=== PATIENT | female | born 1965 | race Caucasian/White ===

== ENCOUNTER → 2017-09-26 | Day surgery (SDC) | payer BC ==
[~2017-09-26] MED LIST: Lactated Ringers 1,000 ML IV SCH; Propofol 200 MG/20 ML SDV IV ONE
--- NOTE | 2017-09-26 11:12 | OR ---
DATE OF OPERATION: 09/26/2017 PREOPERATIVE DIAGNOSIS: COLON SCREENING. POSTOPERATIVE DIAGNOSIS: COLON SCREENING. SURGEON: Zheng Galeas MD PROCEDURE: COLONOSCOPY. ANESTHESIA: IV sedation by [employer]IL [employer] FISHING TOOL TECHNICIAN. DESCRIPTION OF PROCEDURE: After the patient was placed in left lateral position, colonoscope was gradually maneuvered through the rectum, then into sigmoid colon, gradually up the descending colon across the splenic flexure into transverse colon, across the hepatic flexure and descending colon, down to cecum. Multiple photographs were taken. Colonoscope was gradually withdrawn. There was no evidence of any tumor, mass, any polypoid lesion, any inflammatory process, or any diverticulosis. The patient tolerated the procedure well and left the operating room in satisfactory condition. ELIZABETH/MANDY /[id number]
== END ==
LOC: CC.SDS 08:27
PROVIDERS: ATTEND Surgery
DX: Z12.11 Encounter for screening for malignant neoplasm of colon (principal); F41.9 Anxiety disorder, unspecified; I10 Essential (primary) hypertension; E78.00 Pure hypercholesterolemia, unspecified; E87.6 Hypokalemia; Z79.899 Other long term (current) drug therapy; Z98.890 Other specified postprocedural states; Z90.710 Acquired absence of both cervix and uterus; Z87.891 Personal history of nicotine dependence
CPT/HCPCS: 45378; J2704; J7120

== ENCOUNTER 2018-08-04 17:59 | Emergency (ER) | payer BC ==
[2018-08-04] MEDS ORDERED: Ondansetron 4 MG Tab.DIS PO ONE (18:00)
--- NOTE | 2018-08-04 18:34 | EDM.PDOC ---
ED HPI GENERAL MEDICAL PROBLEM - General Chief Complaint: Lower Extremity Injury/Pain Stated Complaint: fall from scaufolding Time Seen by Provider: 08/04/18 18:10 Source of Information: Reports: Patient, EMS, Family History Limitations: Reports: Altered Mental Status - History of Present Illness INITIAL COMMENTS - FREE TEXT/NARRATIVE: Pt was found on the ground after falling 6 feet off a scaffolding where she had been painting. It was not witnessed and she doesn't remember falling. She remembers being on the scaffold and that is it. She was unconscious when first found on the ground that was grass but very hard and packed down area. Airway is open. pt talking breathing- she denies feeling SOB. Lung sounds are clear throughout. Trachea is midline circulation- No open areas or bleeding noted. deformites. She does have inward rotation and swelling to her left foot. Pulse is present. Pain to posterior left hip with movement but has full ROM at the hip. Posterior pelvis is tender with palpation on the left. No leg deformity noted. C- collar is intact. Onset: Today Onset Time: 17:30 Location: Reports: Head, Pelvis, Lower Extremity, Left. Denies: Chest, Abdomen , Back Worsens with: Reports: Movement Associated Symptoms: Reports: Confusion Left Hip Pain Score (Numeric/FACES): 7 Left Ankle Pain Score (Numeric/FACES): 8 - Related Data Allergies Allergy/AdvReac Type Severity Reaction Status Date / Time No Known Allergies Allergy Verified 08/04/18 17:48 Home Meds: Home Meds Diltiazem HCl [Dilt-XR] 120 mg PO DAILY 09/26/17 [History] Hydrochlorothiazide 25 mg PO DAILY 09/26/17 [History] PARoxetine HCl [Paroxetine HCl] 40 mg PO BEDTIME 09/26/17 [History] Sulfamethoxazole/Trimethoprim [Bactrim Ds Tablet] 1 tab PO BEDTIME 09/26/17 [ History] atorvaSTATin Calcium [Atorvastatin Calcium] 10 mg PO BEDTIME 09/26/17 [History] Cholecalciferol (Vitamin D3) [Vitamin D3] 1,000 unit PO DAILY 08/04/18 [History] Ubidecarenone [Co Q-10] 50 mg PO DAILY 08/04/18 [History] Past Medical History Cardiovascular History: Reports: High Cholesterol, Hypertension Psychiatric History: Reports: Depression Dermatologic History: Reports: Other (See Below) (boils- takes sulfa for it.) - Past Surgical History HEENT Surgical History: Reports: Adenoidectomy, Tonsillectomy, Other (See Below ) (septoplasty) Female Surgical History: Reports: Hysterectomy Musculoskeletal Surgical History: Reports: Shoulder Surgery Social & Family History - Tobacco Use Smoking Status *Q: Current Every Day Smoker (1 1/2 pack a day.) - Living Situation & Occupation Living situation: Reports: , with Family Occupation: Employed Review of Systems - Review of Systems Review Of Systems: See Below Constitutional: Reports: No Symptoms Eyes: Reports: No Symptoms Ears: Denies: Pain, Bloody Discharge Nose: Reports: No Symptoms Mouth/Throat: Reports: No Symptoms Respiratory: Denies: Shortness of Breath Cardiovascular: Reports: No Symptoms GI/Abdominal: Reports: No Symptoms Musculoskeletal: Reports: Foot Pain, Other (posterior pelvis pain.) Skin: Reports: No Symptoms. Denies: Wound Neurological: Reports: Confusion, Headache, Other (initial LOC noted on scene) Psychiatric: Reports: No Symptoms ED EXAM, GENERAL - Physical Exam Exam: See Below Exam Limited By: Altered Mental Status General Appearance: Alert, Moderate Distress Eye Exam: Bilateral Eye: PERRL (3 mm) Ears: Normal External Exam, Normal Canal, Normal TMs Nose: Normal Inspection Throat/Mouth: Normal Inspection, Normal Oropharynx, No Airway Compromise Head: Atraumatic, Normocephalic Neck: Normal Inspection, Supple, Non-Tender, Full Range of Motion Respiratory/Chest: No Respiratory Distress, Lungs Clear, Normal Breath Sounds Cardiovascular: Regular Rate, Rhythm, No Edema GI/Abdominal: Normal Bowel Sounds, Soft, Non-Tender Back Exam: Normal Inspection. No: Paraspinal Tenderness, Vertebral Tenderness Extremities: No Pedal Edema, Normal Capillary Refill, Other (pain to the posterior pelvis with any movement.) Neurological: Alert, Confused Skin Exam: Warm, Dry, Intact. No: Wound/Incision Course - Vital Signs Last Recorded V/S: Last Vital Signs Temp 98.5 F 08/04/18 18:57 Pulse 62 08/04/18 18:57 Resp 18 08/04/18 18:57 BP 141/79 H 08/04/18 18:57 Pulse Ox 99 08/04/18 18:57 - Orders/Labs/Meds Orders: Active Orders 24 hr Category Date Time Status Ankle Min 3V Lt [CR] Stat Exams 08/04/18 18:13 Taken CXR [Chest 1V Frontal] [CR] Stat Exams 08/04/18 18:11 Taken Cervical Spine wo Cont [CT] Stat Exams 08/04/18 18:18 Ordered Head wo Cont [CT] Stat Exams 08/04/18 18:18 Taken Pelvis 1V or 2V [CR] Stat Exams 08/04/18 18:11 Taken Labs: Laboratory Tests 08/04/18 08/04/18 08/04/18 Range/Units 18:16 18:16 18:16 WBC 14.2 H (5.0-10.0) 10^3/uL RBC 4.56 (4.00-5.50) 10^6/uL Hgb 14.3 (12.0-16.0) g/dL Hct 43.3 (37.0-47.0) % MCV 95.0 H (82.0-94.0) fL MCH 31.4 (27.0-32.0) pg MCHC 33.0 (33.0-38.0) g/dL RDW Coeff of Dali 13.6 (11.0-15.0) % Plt Count 276 (150-400) 10^3/uL Neut % (Auto) 71.2 (35-85) % Lymph % (Auto) 21.6 (10-55) % [place] % (Auto) 5.9 (0-16) % Eos % (Auto) 1.1 (0-5) % Baso % (Auto) 0.2 (0-3) % Neut # (Auto) 10.07 H (1.80-7.00) 10^3/uL Lymph # (Auto) 3.06 (1.00-4.80) 10^3/uL [place] # (Auto) 0.84 H (0.00-0.80) 10^3/uL Eos # (Auto) 0.15 (0.00-0.45) 10^3/uL Baso # (Auto) 0.03 10^3/uL PT 10.6 (9.7-12.3) SEC INR 1.02 (0.92-1.18) Sodium 140 (136-145) mEq/L Potassium 4.7 D (3.5-5.0) mEq/L Chloride 102 (98-106) mEq/L Carbon Dioxide 32 (21-32) mmol/L BUN 16 D (7-18) mg/dL Creatinine 1.0 (0.6-1.0) mg/dL Est Cr Clr Drug Dosing 61.81 mL/min Estimated GFR (MDRD) 58 L (>=60) mL/min Glucose 156 H D (75-99) mg/dL Calcium 9.8 (8.4-10.1) mg/dL Total Bilirubin 0.4 (0.0-1.0) mg/dL AST 20 (15-37) U/L ALT 28 (12-78) U/L Alkaline Phosphatase 91 (46-116) U/L Total Protein 7.6 (6.4-8.2) g/dL Albumin 4.3 (3.4-5.0) g/dL Amylase 47 (25-115) U/L HCG, Qual Urine Color (YELLOW) Urine Appearance (CLEAR) Urine pH (4.5-8.0) Ur Specific [place] (1.003-1.020) Urine Protein (NEGATIVE) mg/dL Urine Glucose (UA) (NEGATIVE) mg/dL Urine Ketones (NEGATIVE) mg/dL Urine Occult Blood (NEGATIVE) Urine Nitrite (NEGATIVE) Urine Bilirubin (NEGATIVE) Urine Urobilinogen (0.2-1.0) EU/dL Ur Leukocyte Esterase (NEGATIVE) Urine RBC (0-5) /HPF Urine WBC (0-5) /HPF Ur Squamous Epith Cells (NOT SEEN) /HPF Amorphous Sediment (NOT SEEN) /HPF Urine Bacteria (NOT SEEN) /HPF 08/04/18 08/04/18 Range/Units 18:31 19:28 WBC (5.0-10.0) 10^3/uL RBC (4.00-5.50) 10^6/uL Hgb (12.0-16.0) g/dL Hct (37.0-47.0) % MCV (82.0-94.0) fL MCH (27.0-32.0) pg MCHC (33.0-38.0) g/dL RDW Coeff of Dali (11.0-15.0) % Plt Count (150-400) 10^3/uL Neut % (Auto) (35-85) % Lymph % (Auto) (10-55) % [place] % (Auto) (0-16) % Eos % (Auto) (0-5) % Baso % (Auto) (0-3) % Neut # (Auto) (1.80-7.00) 10^3/uL Lymph # (Auto) (1.00-4.80) 10^3/uL [place] # (Auto) (0.00-0.80) 10^3/uL Eos # (Auto) (0.00-0.45) 10^3/uL Baso # (Auto) 10^3/uL PT (9.7-12.3) SEC INR (0.92-1.18) Sodium (136-145) mEq/L Potassium (3.5-5.0) mEq/L Chloride (98-106) mEq/L Carbon Dioxide (21-32) mmol/L BUN (7-18) mg/dL Creatinine (0.6-1.0) mg/dL Est Cr Clr Drug Dosing mL/min Estimated GFR (MDRD) (>=60) mL/min Glucose (75-99) mg/dL Calcium (8.4-10.1) mg/dL Total Bilirubin (0.0-1.0) mg/dL AST (15-37) U/L ALT (12-78) U/L Alkaline Phosphatase (46-116) U/L Total Protein (6.4-8.2) g/dL Albumin (3.4-5.0) g/dL Amylase (25-115) U/L HCG, Qual Negative Urine Color Yellow (YELLOW) Urine Appearance Clear (CLEAR) Urine pH 7.0 (4.5-8.0) Ur Specific [place] 1.020 (1.003-1.020) Urine Protein Negative (NEGATIVE) mg/dL Urine Glucose (UA) Negative (NEGATIVE) mg/dL Urine Ketones Negative (NEGATIVE) mg/dL Urine Occult Blood Trace-intact H (NEGATIVE) Urine Nitrite Negative (NEGATIVE) Urine Bilirubin Negative (NEGATIVE) Urine Urobilinogen 0.2 (0.2-1.0) EU/dL Ur Leukocyte Esterase Trace H (NEGATIVE) Urine RBC 0-5 (0-5) /HPF Urine WBC 0-5 (0-5) /HPF Ur Squamous Epith Cells Moderate H (NOT SEEN) /HPF Amorphous Sediment Few H (NOT SEEN) /HPF Urine Bacteria Occasional H (NOT SEEN) /HPF Meds: Medications Discontinued Medications Generic Name Dose Route Start Last Admin Trade Name Hi PRN Reason Stop Dose Admin Fentanyl 50 mcg 08/04/18 19:10 08/04/18 19:15 Sublimaze IVPUSH 08/04/18 19:11 50 mcg ONETIME ONE Administration Ondansetron HCl 4 mg 08/04/18 19:10 08/04/18 19:15 Zofran IVPUSH 08/04/18 19:11 4 mg ONETIME ONE Administration - Re-Assessments/Exams Free Text/Narrative Re-Assessment/Exam: 08/04/18 1850 discussed xray of pelvis with Dr. Murillo. He recommends non weight bearing with gradual full weight bearing as tolerated. Using crutches or walker. Discussed with pt and family. Will send home on zofran for nausea that she gets if she takes any pain meds. Has norco at home from previous surgery and will use that. CT head, c-spine negative xray of the chest and ankle are negative Pt is now alert and oriented and can remember being on the scaffold. Departure - Departure Time of Disposition: 20:10 Disposition: Home, Self-Care 01 Condition: Good Clinical Impression: Inferior pubic ramus fracture Qualifiers: Encounter type: initial encounter Fracture type: closed Laterality: left Qualified Code(s): S32.592A - Other specified fracture of left pubis, initial encounter for closed fracture Fracture of superior pubic ramus Qualifiers: Encounter type: initial encounter Fracture type: closed Laterality: left Qualified Code(s): S32.512A - Fracture of superior rim of left pubis, initial encounter for closed fracture Fall from scaffold Qualifiers: Encounter type: initial encounter Qualified Code(s): W12.XXXA - Fall on and from scaffolding, initial encounter - Discharge Information *PRESCRIPTION DRUG MONITORING PROGRAM REVIEWED*: Not Applicable *COPY OF PRESCRIPTION DRUG MONITORING REPORT IN PATIENT MARINA: Not Applicable Instructions: Crutch Use, Adult, [id number] Referrals: Yulia Garcia PA-C [Primary Care Provider] - Forms: ED Department Discharge Additional Instructions: gradual weight bearing as tolerated for pain use crutches until full weight bearing Use norco that you have at home zofran ODT as needed for the nausea if needed recheck if pain becomes worse or any new concerns noted. - Problem List & Annotations (1) Fracture of superior pubic ramus SNOMED Code(s): 445163923 Code(s): S32.519A - FRACTURE OF SUPERIOR RIM OF UNSP PUBIS, INIT FOR CLOS FX Status: Acute Priority: High Current Visit: Yes Qualifiers: Encounter type: initial encounter Fracture type: closed Laterality: left Qualified Code(s): S32.512A - Fracture of superior rim of left pubis, initial encounter for closed fracture (2) Inferior pubic ramus fracture SNOMED Code(s): 802770509 Code(s): S32.599A - OTH FRACTURE OF UNSP PUBIS, INIT ENCNTR FOR CLOSED FRACTURE Status: Acute Priority: High Current Visit: Yes Qualifiers: Encounter type: initial encounter Fracture type: closed Laterality: left Qualified Code(s): S32.592A - Other specified fracture of left pubis, initial encounter for closed fracture (3) Fall from scaffold SNOMED Code(s): 0254672 Code(s): W12.XXXA - FALL ON AND FROM SCAFFOLDING, INITIAL ENCOUNTER Status : Acute Priority: High Current Visit: Yes Qualifiers: Encounter type: initial encounter Qualified Code(s): W12.XXXA - Fall on and from scaffolding, initial encounter - Problem List Review Problem List Initiated/Reviewed/Updated: Yes - My Orders Last 24 Hours: My Active Orders 08/04/18 18:11 CXR [Chest 1V Frontal] [CR] Stat Pelvis 1V or 2V [CR] Stat 08/04/18 18:13 Ankle Min 3V Lt [CR] Stat 08/04/18 18:18 Cervical Spine wo Cont [CT] Stat Head wo Cont [CT] Stat - Assessment/Plan Last 24 Hours: My Active Orders 08/04/18 18:11 CXR [Chest 1V Frontal] [CR] Stat Pelvis 1V or 2V [CR] Stat 08/04/18 18:13 Ankle Min 3V Lt [CR] Stat 08/04/18 18:18 Cervical Spine wo Cont [CT] Stat Head wo Cont [CT] Stat
[2018-08-04] MEDS ORDERED: Ondansetron 4 MG/2 ML SDV IVPUSH ONE (19:10)
[2018-08-04] MEDS ORDERED: fentaNYL 100 MCG/2 ML SDV IVPUSH ONE (19:10)
[2018-08-04] MEDS ORDERED: Take Home: Ondansetron 4 MG Tab.DIS, 2 Tab Pack PO ONE (20:08)
== END 2018-08-04 20:40 | disposition home or self-care (01) ==
LOC: CC.ED 17:59
DX: S32.512A Fracture of superior rim of left pubis, initial encounter for closed fracture (principal); S32.592A Other specified fracture of left pubis, initial encounter for closed fracture; F17.210 Nicotine dependence, cigarettes, uncomplicated; I10 Essential (primary) hypertension; E78.00 Pure hypercholesterolemia, unspecified; F32.9 Major depressive disorder, single episode, unspecified; Z79.899 Other long term (current) drug therapy; W12.XXXA Fall on and from scaffolding, initial encounter
CPT/HCPCS: 36415; 70450; 71045; 72125; 72170; 73610; 80053; 81001; 82150; 84703; 85025; 85610; 96374; 96375; 99284; A9270; J2405; J3010

== ENCOUNTER 2021-08-15 12:24 | Emergency (ER) | payer BC ==
[2021-08-15] MEDS ORDERED: Ondansetron 4 MG Tab.DIS PO ONE (13:39)
[2021-08-15] MEDS ORDERED: Meclizine 12.5 MG Tab PO ONE (13:39)
[2021-08-15] MEDS ORDERED: Take Home: Meclizine 12.5 MG Tab, 4 Tab Pack ONE (14:52)
--- NOTE | 2021-08-15 14:56 | EDM.PDOC ---
ED HPI GENERAL MEDICAL PROBLEM - General Chief Complaint: Upper Extremity Injury/Pain Stated Complaint: L)hand pain post fall Time Seen by Provider: 08/15/21 12:40 Source of Information: Reports: Patient History Limitations: Reports: No Limitations - History of Present Illness INITIAL COMMENTS - FREE TEXT/NARRATIVE: Janet is a 56 yo female who presents to the ED via private vehicle with concerns of a dizziness episode with a fall. Admits during the fall she did hit the frontal aspect of her head and landed on her left hand. States she does have swelling and discomfort to the left hand. Continues to have a room spinning sensation with positional changes of her head. Pt states she got out of bed at 9 and was walking to the living room when she got dizzy and fell. Left Hand Pain Score (Numeric/FACES): 2 - Related Data Allergies Allergy/AdvReac Type Severity Reaction Status Date / Time No Known Allergies Allergy Verified 08/04/18 17:48 Home Meds: Home Meds Hydrochlorothiazide 25 mg PO DAILY 09/26/17 [History] PARoxetine HCL [Paroxetine HCl] 40 mg PO BEDTIME 09/26/17 [History] Sulfamethoxazole/Trimethoprim [Bactrim Ds Tablet] 1 tab PO BEDTIME 09/26/17 [History] atorvaSTATin Calcium [Atorvastatin Calcium] 10 mg PO BEDTIME 09/26/17 [History] dilTIAZem HCL [Dilt-XR] 120 mg PO DAILY 09/26/17 [History] Cholecalciferol (Vitamin D3) [Vitamin D3] 1,000 unit PO DAILY 08/04/18 [History] Ubidecarenone [Co Q-10] 50 mg PO DAILY 08/04/18 [History] Varenicline Tartrate [Chantix] 1 tab PO DAILY 08/15/21 [History] Past Medical History Cardiovascular History: Reports: High Cholesterol, Hypertension Gastrointestinal History: Reports: None Genitourinary History: Reports: None [employer]IC[employer] History: Reports: Musculoskeletal History: Reports: None Psychiatric History: Reports: Depression Dermatologic History: Reports: Other (See Below) - Past Surgical History HEENT Surgical History: Reports: Adenoidectomy, Tonsillectomy, Other (See Below) Other HEENT Surgeries/Procedures: septoplasty, uvulectomy, turbinate reduction Cardiovascular Surgical History: Reports: None GI Surgical History: Reports: Colonoscopy, EGD Female Surgical History: Reports: Hysterectomy Musculoskeletal Surgical History: Reports: Shoulder Surgery Dermatological Surgical History: Reports: Skin Biopsy Social & Family History - Family History Family Medical History: No Pertinent Family History - Tobacco Use Tobacco Use Status *Q: Former Tobacco User Used Tobacco, but Quit: Yes Month/Year Tobacco Last Used: 07/05/21 - Caffeine Use Caffeine Use: Reports: Coffee - Recreational Drug Use Recreational Drug Use: No - Living Situation & Occupation Living situation: Reports: , with Family Occupation: Employed Review of Systems - Review of Systems Review Of Systems: See Below Constitutional: Reports: No Symptoms. Denies: Fever, Weakness Eyes: Denies: Tunnel Vision, Vision Change Ears: Reports: Dizziness. Denies: Tinnitus Nose: Reports: No Symptoms Mouth/Throat: Reports: No Symptoms Respiratory: Reports: No Symptoms Cardiovascular: Reports: Lightheadedness. Denies: Syncope GI/Abdominal: Reports: No Symptoms Musculoskeletal: Reports: No Symptoms Skin: Reports: No Symptoms Neurological: Reports: Dizziness. Denies: Headache, Pre-Existing Deficit, Gait Disturbance Psychiatric: Reports: No Symptoms ED EXAM, GENERAL - Physical Exam Exam: See Below Exam Limited By: No Limitations General Appearance: Alert, WD/WN, No Apparent Distress Eye Exam: Bilateral Eye: EOMI, Normal Inspection, PERRL Ears: Normal External Exam, Normal Canal, Hearing Grossly Normal, Normal TMs, Other (Positive Aric Hallpike maneuver test to the left, negative to the right. ) Nose: Normal Inspection, Normal Mucosa, No Blood Throat/Mouth: Normal Inspection, Normal Lips, Normal Teeth, Normal Gums, Normal Oropharynx, Normal Voice, No Airway Compromise Head: Atraumatic, Normocephalic, Other (small hematoma to right forehead. ) Neck: Normal Inspection, Supple, Non-Tender. No: Tender Lateral, Tender Midline Respiratory/Chest: No Respiratory Distress, Lungs Clear, Normal Breath Sounds, No Accessory Muscle Use Cardiovascular: Normal Peripheral Pulses, Regular Rate, Rhythm, No Edema, No Murmur GI/Abdominal: Normal Bowel Sounds, Soft, Non-Tender, No Distention Extremities: No Pedal Edema, Limited Range of Motion (index finger of left hand, swelling noted over dorsum of 2nd metacarpal), Other Neurological: Alert, Oriented, Normal Cognition, No Motor/Sensory Deficits Psychiatric: Normal Affect, Normal Mood Skin Exam: Warm, Dry, Intact, Normal Color, No Rash ED TRAUMA EXTREMITY PROCEDURES - Splinting Left Upper Extremity Splint Site: left hand Pre-Procedure NV Status: Normal Post-Procedure NV Status: Normal Splint Material: Fiberglass Splint Design: Gutter (radial) Applied & Form Fitted By: Provider Provider Post-Splint Application NV Check: NV Status Normal, Good Position Complications: No #1 Interpretation EKG Date: 08/15/21 Time: 12:40 Rhythm: NSR [place]: Normal ST-T: Normal QT: Normal Comparison: NA - No Prior EKG Course - Vital Signs Last Recorded V/S: Last Vital Signs Temp 97.1 F 08/15/21 12:25 Pulse 72 08/15/21 12:25 Resp 18 08/15/21 12:25 BP 165/91 H 08/15/21 13:48 Pulse Ox 97 08/15/21 12:25 - Orders/Labs/Meds Orders: Active Orders 24 hr Category Date Time Status Hand Comp Min 3V Lt [CR] Stat Exams 08/15/21 12:31 Taken Head wo Cont [CT] Stat Exams 08/15/21 13:05 Taken Meclizine [Take Home: Meclizine 12.5 MG, 4 Tab Pack] Med 08/15/21 14:57 Once 2 packet PO ONETIME ONE Ondansetron [Take Home: Ondansetron ODT 4 MG, 2 Tab Med 08/15/21 14:57 Once Pack] 2 packet PO ONETIME ONE EKG 12 Lead [EK] Stat Ther 08/15/21 12:31 Ordered Labs: Laboratory Tests 08/15/21 08/15/21 08/15/21 Range/Units 12:08 12:40 13:04 WBC 7.6 (4.0-11.0) 10^3/uL RBC 4.26 (4.00-5.50) x10^6/uL Hgb 13.8 (12.0-16.0) g/dL Hct 40.4 (37.0-47.0) % MCV 94.8 (83.0-97.0) fL MCH 32.4 H (27.0-32.0) pg MCHC 34.2 (32.0-36.0) g/dL RDW Coeff of Dali 13.3 (11.0-15.0) % Plt Count 288 (150-400) 10^3/uL Immature Gran % (Auto) 0.4 (0.0-4.9) % Neut % (Auto) 56.3 (41-71) % Lymph % (Auto) 34.2 (24-44) % [place] % (Auto) 6.8 (0-10) % Eos % (Auto) 1.9 (0-6) % Baso % (Auto) 0.4 (0-1) % Neut # (Auto) 4.26 (1.80-8.00) x10^3/uL Lymph # (Auto) 2.58 (0.60-5.00) 10^3/uL [place] # (Auto) 0.51 (0.00-1.50) 10^3/uL Eos # (Auto) 0.14 (0.00-1.50) 10^3/uL Baso # (Auto) 0.03 (0.00-0.50) 10^3/uL Immature Gran # (Auto) 0.03 (0.00-0.49) 10^3/uL Sodium 145 (136-145) mEq/L Potassium 3.6 (3.5-5.0) mEq/L Chloride 105 (98-106) mEq/L Carbon Dioxide 29 (21-32) mmol/L BUN 12 (7-18) mg/dL Creatinine 1.0 (0.6-1.0) mg/dL Est Cr Clr Drug Dosing 59.63 mL/min Estimated GFR (MDRD) 57 L (>=60) mL/min Glucose 100 H (75-99) mg/dL Calcium 9.2 (8.4-10.1) mg/dL Total Bilirubin 0.4 (0.0-1.0) mg/dL AST 22 (15-37) U/L ALT 35 (12-78) U/L Alkaline Phosphatase 105 (46-116) U/L Lactate Dehydrogenase 195 H (100-190) U/L Creatine Kinase 122 (21-215) U/L Troponin I High Sens 4.1 (<=51) pg/mL Total Protein 7.8 (6.4-8.2) g/dL Albumin 4.2 (3.4-5.0) g/dL Urine Color Light yellow (YELLOW) Urine Appearance Clear (CLEAR) Urine pH 7.5 (4.5-8.0) Ur Specific [place] 1.015 (1.003-1.020) Urine Protein Negative (NEGATIVE) mg/dL Urine Glucose (UA) Negative (NEGATIVE) mg/dL Urine Ketones Negative (NEGATIVE) mg/dL Urine Occult Blood Trace-intact H (NEGATIVE) Urine Nitrite Negative (NEGATIVE) Urine Bilirubin Negative (NEGATIVE) Urine Urobilinogen 0.2 (0.2-1.0) EU/dL Ur Leukocyte Esterase Negative (NEGATIVE) Urine RBC 0-5 (0-5) /HPF Urine WBC Not seen (0-5) /HPF Ur Epithelial Cells Few H (NOT SEEN) /HPF Urinalysis Comment Meds: Medications Discontinued Medications Generic Name Dose Route Start Last Admin Trade Name Cresencioq PRN Reason Stop Dose Admin Meclizine HCl 25 mg 08/15/21 13:39 08/15/21 13:46 Meclizine 12.5 Mg Tab PO 08/15/21 13:40 25 mg ONETIME ONE Administration Ondansetron HCl 4 mg 08/15/21 13:39 08/15/21 13:46 Ondansetron 4 Mg Tab.Dis PO 08/15/21 13:40 4 mg ONETIME ONE Administration Departure - Departure Time of Disposition: 15:04 Disposition: Home, Self-Care 01 Clinical Impression: Vertigo, Fracture of metacarpal bone - Discharge Information Instructions: Metacarpal Fracture, [id number], Vertigo, [id number] Referrals: PCP,None [Primary Care Provider] - Forms: ED Department Discharge Additional Instructions: 1) Meclizine 12.5mg - 2 tablets every 8 hours as needed for dizziness, take home packs provided 2) Zofran 4mg ODT - 1 tablet every 4 hours as needed for nausea 3) Refrain from any sudden movements of the head, turn slowly 4) Tuesday recommend reevaluation and referral for canalith repositioning 5) Increase water intake and encourage taking blood pressure medications when you get home CT head was negative for any acute findings. 2nd metacarpal fracture splinted and leave splint in place. Do not remove. Will consult with ortho on Tuesday as well. Plan for possible casting in 10 days. Sepsis Event Note (ED) - Focused Exam Vital Signs: Vital Signs Temp Pulse Resp BP Pulse Ox 08/15/21 13:48 165/91 H 08/15/21 13:35 173/103 H 08/15/21 12:44 165/89 H 08/15/21 12:25 97.1 F 72 18 171/97 H 97 - Problem List & Annotations (1) Fracture, metacarpal shaft SNOMED Code(s): 64312831 Code(s): S62.329A - DISP FX OF SHAFT OF UNSP METACARPAL BONE, INIT FOR CLOS FX Status: Acute Current Visit: Yes Qualifiers: Encounter type: initial encounter Metacarpal bone: second Fracture type: closed Fracture alignment: displaced Laterality: left Qualified Code(s): S62.321A - Displaced fracture of shaft of second metacarpal bone, left hand, initial encounter for closed fracture (2) Vertigo SNOMED Code(s): 777339696 Code(s): R42 - DIZZINESS AND GIDDINESS Status: Acute Current Visit: Yes - Problem List Review Problem List Initiated/Reviewed/Updated: Yes - My Orders Last 24 Hours: My Active Orders 08/15/21 12:31 Hand Comp Min 3V Lt [CR] Stat EKG 12 Lead [EK] Stat 08/15/21 13:05 Head wo Cont [CT] Stat 08/15/21 14:57 Meclizine [Take Home: Meclizine 12.5 MG, 4 Tab Pack] 2 packet PO ONETIME ONE Ondansetron [Take Home: Ondansetron ODT 4 MG, 2 Tab Pack] 2 packet PO ONETIME ONE - Assessment/Plan Last 24 Hours: My Active Orders 08/15/21 12:31 Hand Comp Min 3V Lt [CR] Stat EKG 12 Lead [EK] Stat 08/15/21 13:05 Head wo Cont [CT] Stat 08/15/21 14:57 Meclizine [Take Home: Meclizine 12.5 MG, 4 Tab Pack] 2 packet PO ONETIME ONE Ondansetron [Take Home: Ondansetron ODT 4 MG, 2 Tab Pack] 2 packet PO ONETIME ONE Plan: Patient was quite anxious initially with concerns of possible aneurysm d/t family history. CT head was negative for any acute findings. Reassurance provid ed in regards to vertigo adn patient was given Zofran and Meclizine. Vertigo significantly improved. Fracture was noted to the midshaft of the 2nd metacarpal. Radial gutter splint applied. Pain did improve after splinting. Overall patient was feeling a lot better. We did closely monitor patient.
[2021-08-15] MEDS ORDERED: Take Home: Meclizine 12.5 MG Tab, 4 Tab Pack PO ONE (14:57)
[2021-08-15] MEDS ORDERED: Take Home: Ondansetron 4 MG Tab.DIS, 2 Tab Pack PO ONE (14:57)
== END 2021-08-15 15:31 | disposition home or self-care (01) ==
LOC: CC.ED 12:24
DX: S62.351A Nondisplaced fracture of shaft of second metacarpal bone, left hand, initial encounter for closed fracture (principal); S00.83XA Contusion of other part of head, initial encounter; R42 Dizziness and giddiness; E78.00 Pure hypercholesterolemia, unspecified; I10 Essential (primary) hypertension; Z87.891 Personal history of nicotine dependence; Z79.899 Other long term (current) drug therapy; W18.09XA Striking against other object with subsequent fall, initial encounter
CPT/HCPCS: 29125; 36415; 70450; 73130-LT; 80053; 81001; 82550; 83615; 84484; 85025; 93005; 99284-25; A9270-GY

== ENCOUNTER 2021-09-16 14:20 | Emergency (ER) | payer BC ==
--- NOTE | 2021-09-16 17:55 | EDM.PDOC ---
ED HPI GENERAL MEDICAL PROBLEM - General Chief Complaint: Respiratory Problem Stated Complaint: weakness, covid + Time Seen by Provider: 09/16/21 14:35 Source of Information: Reports: Patient History Limitations: Reports: No Limitations - History of Present Illness INITIAL COMMENTS - FREE TEXT/NARRATIVE: Janet is a 56 year old female who presents to ER with complaints of chest discomfort and shortness of breath. Is covid positive. Was tested last week. Noted today that her oxygen sats had dropped in to the 80s. Denies much for cough. Has sinus congestion and drainage. Intermittent fevers. Anorexia. Has been drinking lots of water. Admits that has not done much except lay in bed most days as is so tired and achy. Reports did discuss MABs with her last week but did not meet qualifications and was hesitant to take them. also covid positive. Onset: Gradual Duration: Day(s): Location: Reports: Head, Chest, Generalized Quality: Reports: Ache Severity: Mild Improves with: Reports: None Associated Symptoms: Reports: Fever/Chills, Headaches, Loss of Appetite, Malaise. Denies: Confusion, Chest Pain, Cough, Nausea/Vomiting, Shortness of Breath Treatments ANALYSIS ANALYST: Reports: Acetaminophen - Related Data Allergies Allergy/AdvReac Type Severity Reaction Status Date / Time No Known Allergies Allergy Verified 09/16/21 14:40 Home Meds: Home Meds Hydrochlorothiazide 25 mg PO DAILY 09/26/17 [History] PARoxetine HCL [Paroxetine HCl] 40 mg PO BEDTIME 09/26/17 [History] Sulfamethoxazole/Trimethoprim [Bactrim Ds Tablet] 1 tab PO BEDTIME 09/26/17 [History] atorvaSTATin Calcium [Atorvastatin Calcium] 10 mg PO BEDTIME 09/26/17 [History] dilTIAZem HCL [Dilt-XR] 120 mg PO DAILY 09/26/17 [History] Cholecalciferol (Vitamin D3) [Vitamin D3] 1,000 unit PO DAILY 08/04/18 [History] Ubidecarenone [Co Q-10] 50 mg PO DAILY 08/04/18 [History] Meclizine [Antivert] 12.5 mg PO QAM 09/16/21 [History] Past Medical History Cardiovascular History: Reports: High Cholesterol, Hypertension Gastrointestinal History: Reports: None Genitourinary History: Reports: None 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: Musculoskeletal History: Reports: None Psychiatric History: Reports: Depression Dermatologic History: Reports: Other (See Below) - Past Surgical History HEENT Surgical History: Reports: Adenoidectomy, Tonsillectomy, Other (See Below) Other HEENT Surgeries/Procedures: septoplasty, uvulectomy, turbinate reduction Cardiovascular Surgical History: Reports: None GI Surgical History: Reports: Colonoscopy, EGD Female Surgical History: Reports: Hysterectomy Musculoskeletal Surgical History: Reports: Shoulder Surgery Dermatological Surgical History: Reports: Skin Biopsy Social & Family History - Family History Family Medical History: No Pertinent Family History - Tobacco Use Tobacco Use Status *Q: Former Tobacco User Used Tobacco, but Quit: Yes Month/Year Tobacco Last Used: 06/2021 - Caffeine Use Caffeine Use: Reports: Coffee - Recreational Drug Use Recreational Drug Use: No - Living Situation & Occupation Living situation: Reports: , with Family Occupation: Employed ED ROS GENERAL - Review of Systems Review Of Systems: See Below Constitutional: Reports: Fever, Chills, Malaise, Weakness, Fatigue, Decreased Appetite HEENT: Reports: Rhinitis. Denies: Ear Pain, Sinus Problem, Throat Pain, Vertigo Respiratory: Denies: Shortness of Breath, Cough Cardiovascular: Denies: Chest Pain, Lightheadedness Endocrine: Reports: Fatigue GI/Abdominal: Reports: Diarrhea. Denies: Abdominal Pain, Constipation, Nausea, Vomiting Musculoskeletal: Reports: Muscle Pain Skin: Reports: No Symptoms Neurological: Reports: Headache, Weakness ED EXAM, GENERAL - Physical Exam Exam: See Below Exam Limited By: No Limitations General Appearance: Alert, WD/WN, Mild Distress Ears: Normal External Exam, Normal TMs Nose: Normal Inspection, Clear Rhinorrhea Throat/Mouth: Normal Inspection, Normal Oropharynx Head: Normocephalic Neck: Normal Inspection, Supple, Non-Tender Respiratory/Chest: No Respiratory Distress, Decreased Breath Sounds, Crackles Cardiovascular: Regular Rate, Rhythm GI/Abdominal: Normal Bowel Sounds, Soft, Non-Tender Extremities: Normal Inspection, No Pedal Edema Neurological: Alert, Oriented Skin Exam: Warm, Dry Course - Vital Signs Last Recorded V/S: Last Vital Signs Temp 97.9 F 09/16/21 14:34 Pulse 68 09/16/21 14:34 Resp 16 09/16/21 14:34 BP 124/75 09/16/21 14:34 Pulse Ox 90 L 09/16/21 14:34 - Orders/Labs/Meds Orders: Active Orders 24 hr Category Date Time Status Chest 1V Frontal [CR] Stat Exams 09/16/21 14:38 Taken Labs: Laboratory Tests 09/16/21 09/16/21 09/16/21 Range/Units 14:34 14:34 14:34 WBC 6.8 (4.0-11.0) 10^3/uL RBC 4.26 (4.00-5.50) x10^6/uL Hgb 13.6 (12.0-16.0) g/dL Hct 39.7 (37.0-47.0) % MCV 93.2 (83.0-97.0) fL MCH 31.9 (27.0-32.0) pg MCHC 34.3 (32.0-36.0) g/dL RDW Coeff of Dali 12.8 (11.0-15.0) % Plt Count 237 (150-400) 10^3/uL Immature Gran % (Auto) 0.3 (0.0-4.9) % Neut % (Auto) 68.3 (41-71) % Lymph % (Auto) 25.9 (24-44) % [place] % (Auto) 5.3 (0-10) % Eos % (Auto) 0.1 (0-6) % Baso % (Auto) 0.1 (0-1) % Neut # (Auto) 4.64 (1.80-8.00) x10^3/uL Lymph # (Auto) 1.76 (0.60-5.00) 10^3/uL [place] # (Auto) 0.36 (0.00-1.50) 10^3/uL Eos # (Auto) 0.01 (0.00-1.50) 10^3/uL Baso # (Auto) 0.01 (0.00-0.50) 10^3/uL Immature Gran # (Auto) 0.02 (0.00-0.49) 10^3/uL PT 11.1 (9.7-12.3) SEC INR 1.02 (0.92-1.18) D-Dimer, Quantitative 0.91 H (0.00-0.50) Sodium 137 (136-145) mEq/L Potassium 3.3 L (3.5-5.0) mEq/L Chloride 98 (98-106) mEq/L Carbon Dioxide 29 (21-32) mmol/L BUN 12 (7-18) mg/dL Creatinine 1.0 (0.6-1.0) mg/dL Est Cr Clr Drug Dosing 57.41 mL/min Estimated GFR (MDRD) 57 L (>=60) mL/min Glucose 105 H (75-99) mg/dL Lactic Acid (0.4-2.0) mmol/L Calcium 8.9 (8.4-10.1) mg/dL Magnesium 2.1 (1.8-2.4) mg/dL Total Bilirubin 0.5 (0.0-1.0) mg/dL AST 26 (15-37) U/L ALT 26 (12-78) U/L Alkaline Phosphatase 89 (46-116) U/L Creatine Kinase 46 (21-215) U/L Troponin I High Sens 7.7 (<=51) pg/mL Total Protein 7.8 (6.4-8.2) g/dL Albumin 3.6 (3.4-5.0) g/dL 09/16/21 Range/Units 14:34 WBC (4.0-11.0) 10^3/uL RBC (4.00-5.50) x10^6/uL Hgb (12.0-16.0) g/dL Hct (37.0-47.0) % MCV (83.0-97.0) fL MCH (27.0-32.0) pg MCHC (32.0-36.0) g/dL RDW Coeff of Dali (11.0-15.0) % Plt Count (150-400) 10^3/uL Immature Gran % (Auto) (0.0-4.9) % Neut % (Auto) (41-71) % Lymph % (Auto) (24-44) % [place] % (Auto) (0-10) % Eos % (Auto) (0-6) % Baso % (Auto) (0-1) % Neut # (Auto) (1.80-8.00) x10^3/uL Lymph # (Auto) (0.60-5.00) 10^3/uL [place] # (Auto) (0.00-1.50) 10^3/uL Eos # (Auto) (0.00-1.50) 10^3/uL Baso # (Auto) (0.00-0.50) 10^3/uL Immature Gran # (Auto) (0.00-0.49) 10^3/uL PT (9.7-12.3) SEC INR (0.92-1.18) D-Dimer, Quantitative (0.00-0.50) Sodium (136-145) mEq/L Potassium (3.5-5.0) mEq/L Chloride (98-106) mEq/L Carbon Dioxide (21-32) mmol/L BUN (7-18) mg/dL Creatinine (0.6-1.0) mg/dL Est Cr Clr Drug Dosing mL/min Estimated GFR (MDRD) (>=60) mL/min Glucose (75-99) mg/dL Lactic Acid 1.0 (0.4-2.0) mmol/L Calcium (8.4-10.1) mg/dL Magnesium (1.8-2.4) mg/dL Total Bilirubin (0.0-1.0) mg/dL AST (15-37) U/L ALT (12-78) U/L Alkaline Phosphatase (46-116) U/L Creatine Kinase (21-215) U/L Troponin I High Sens (<=51) pg/mL Total Protein (6.4-8.2) g/dL Albumin (3.4-5.0) g/dL - Re-Assessments/Exams Free Text/Narrative Re-Assessment/Exam: 09/16/21 Labs are essentially unremarkable, potassium low at 3.3. Chest xray does show viral pneumonia. Is requiring oxygen at 5 liters. Discussed admission with Remdesivir IV. Patient very hesitant. Wanted this provider to contact her daughter. Spoke with daughter, is worried about the Remdesivir as believes it is more risk than benefit as her father's sister did suffer from kidney failure while having covid and believes it from the infusion and is now on a vent. Patient declines having it and refuses admission. Feels able to care for self, push fluids and be home on oxygen. Home oxygen arranged for patient. Discussed changes with covid, when to return. Departure - Departure Time of Disposition: 17:52 Disposition: Home, Self-Care 01 Condition: Fair Clinical Impression: COVID-19, Viral pneumonia - Discharge Information *PRESCRIPTION DRUG MONITORING PROGRAM REVIEWED*: No *COPY OF PRESCRIPTION DRUG MONITORING REPORT IN PATIENT MARINA: No Instructions: COVID-19 Frequently Asked Questions, Symptoms of COVID-19 - [facility] [place] (01/12/2021) Referrals: PCP,None [Ordering Only Provider] - Forms: ED Department Discharge Additional Instructions: 1. Push fluids 2. Increase activity/lie prone if able 3. Alternate tylenol with ibuprofen for fever or discomfort 4. Oxygen to keep sats greater than 90%. When consistently able to keep oxygen levels up, may discontinue. 5. Follow up if worsening symptoms - My Orders Last 24 Hours: My Active Orders 09/16/21 14:38 Chest 1V Frontal [CR] Stat - Assessment/Plan Last 24 Hours: My Active Orders 09/16/21 14:38 Chest 1V Frontal [CR] Stat
== END 2021-09-16 18:40 | disposition home or self-care (01) ==
LOC: CC.ED 14:20
DX: U07.1 COVID-19 (principal); J12.82 Pneumonia due to coronavirus disease 2019; E78.00 Pure hypercholesterolemia, unspecified; I10 Essential (primary) hypertension; Z87.891 Personal history of nicotine dependence; Z79.899 Other long term (current) drug therapy
CPT/HCPCS: 36415; 71045; 80053; 82550; 83605; 83735; 84484; 85025; 85379; 85610; 93005; 99285-25